=== PATIENT | female | born 1985 | race Caucasian/White ===

== ENCOUNTER → 2018-03-05 14:49 | Outpatient (CLI) | payer BC, SELFPAY ==
[2018-03-05 17:48] LABS: Ferritin 139 ng/mL (8-252); Prolactin 6.2 ng/mL; T4 Free Direct 1.69 ng/dL (0.76-1.46); Thyroid Stim Hormone (TSH) 2.18 uIU/mL (0.358-3.74)
[2018-03-05 17:49] LABS: T3 Total - Triiodothyronine 1.28 ng/mL (0.6-1.81)
[2018-03-14 14:07] LABS: DHEA Sulfate 191.6 ug/dL (84.8-378.0); Testosterone, % Free 2.64 % (0.50-2.80); Testosterone, Free 1.08 ng/dL (0.10-0.85); Testosterone, Total 41 ng/dL (8-48)
[2018-03-14 14:51] LABS: Androstenedione 130 ng/dL (41-262); Anti-Thyroglobulin AB 1.8 IU/mL (0.0-0.9); Thyroglobulin RIA 2.8 ng/mL (.)
== END ==
PROVIDERS: Family Provider Family Medicine; PCP Family Medicine; Visit Provider Dermatology Pediatric Dermatology
DX: L64.8 Other androgenic alopecia (principal); E28.2 Polycystic ovarian syndrome
CPT/HCPCS: 36415; 82157; 82627; 82728; 83001; 84146; 84402; 84403; 84432; 84439; 84443; 84480; 86800; 82626